=== PATIENT | male | born 1970 | race American Indian/Alaskan Native ===

== ENCOUNTER 2019-07-20 22:28 | Emergency (ER) | payer SELFPAY | END 2019-07-20 23:34 | disposition left against medical advice (07) | LOC: ED 22:28 | DX: J11.1 Influenza due to unidentified influenza virus with other respiratory manifestations (principal); Z53.21 Procedure and treatment not carried out due to patient leaving prior to being seen by health care provider ==

== ENCOUNTER 2022-03-14 18:32 | Emergency (ER) | payer MEDICARE, OTHER ==
[2022-03-14 18:49] VITALS: BP 160/87
[2022-03-14] MEDS ORDERED: oxyCODONE /ACETAMINOPHEN 5-325MG TAB PO ONE (20:21)
--- NOTE | 2022-03-14 20:28 | XRay Report ---
LEFT ELBOW 3 VIEWS INDICATION / CLINICAL INFORMATION: pain, laceration. COMPARISON: None available. FINDINGS: BONES / JOINT(S): No acute fracture or subluxation. No significant arthritis. SOFT TISSUES: No radiopaque foreign body. ADDITIONAL FINDINGS: None. Signer Name: Leopoldo Banuelos MD Signed: 03/14/2022 8:24 PM Workstation Name: [id number]
[2022-03-14] MEDS ORDERED: LIDOCAINE (2%) 20 MG/1 ML VIAL 20 ML MDV INFILTRATI STA (21:13)
--- NOTE | 2022-03-14 22:16 | Emergency Department Report ---
ED Laceration HPI - HPI Chief Complaint: Wound/Laceration Stated Complaint: LT ARM CUT Time Seen by Provider: 03/14/22 20:54 Occurred When: Today Location: Upper Extremity Severity: mild Tetanus Status: Up to Date Laceration Symptoms: Yes Pain, No Foreign Body Sensation, No Numbness, No Weakness Other History: accidental cut left elbow on the garage earlier today now has pain to elbow wtih laceration and bleeding. ED Review of Systems ROS: Stated complaint: LT ARM CUT Other details as noted in HPI Comment: All other systems reviewed and negative ED Past Medical Hx - Past Medical History Previous Medical History?: No - Surgical History Past Surgical History?: No Additional Surgical History: testicle - Social History Smoking Status: Never Smoker Substance Use Type: Alcohol - Medications Home Medications: Home Medications Medication Instructions Recorded Confirmed Last Taken Type Acetaminophen/Codeine [Tylenol #3] 1 tab PO Q6H PRN #20 tab 03/14/22 Unknown Rx cephALEXin [Keflex] 500 mg PO Q6HR #40 capsule 03/14/22 Unknown Rx Laceration Physical Exam - Exam General: Vital signs noted. No distress. Alert and acting appropriately. Laceration Location: Upper Extremity Full Body Front + Back: 1 - arc fullthickness laceration. Laceration Exam: Yes Normal Distal CMS, No Foreign Body, No Exposed Tendon, Vessel, or Nerve, No Tendon Injury ED Course Vital Signs 03/14/22 18:44 Temperature 97.7 F Pulse Rate 55 L Respiratory 18 Rate Blood Pressure 160/87 [Left] O2 Sat by Pulse 97 Oximetry Critical care attestation.: If time is entered above; I have spent that time in minutes in the direct care of this critically ill patient, excluding procedure time. ED Disposition Disposition: 01 HOME / SELF CARE / HOMELESS Condition: Stable Instructions: Laceration Care, Adult, [id number], Sutured Wound Care, [id number] Additional Instructions: f/u in 12-14 days for stature removal. Prescriptions: cephALEXin [Keflex] 500 mg PO Q6HR #40 capsule Acetaminophen/Codeine [Tylenol #3] 1 tab PO Q6H PRN #20 tab PRN Reason: Pain Referrals: SRINATH RUVALCABA MD [Primary Care Provider] - 3-5 Days
== END 2022-03-14 22:12 | disposition home or self-care (01) ==
LOC: ED 18:32
DX: S41.112A Laceration without foreign body of left upper arm, initial encounter (principal); W45.8XXA Other foreign body or object entering through skin, initial encounter; Y93.89 Activity, other specified; Y92.89 Other specified places as the place of occurrence of the external cause; Y99.8 Other external cause status
CPT/HCPCS: 73080; 99283; J3490